=== PATIENT | female | born 1965 | race Caucasian/White ===

== ENCOUNTER 2018-01-07 12:36 | Emergency (ER) | payer BC ==
[~2018-01-07] VITALS: Ht 170.2 cm; Wt 65.3 kg
[2018-01-07 12:39] VITALS: BP 139/87
[2018-01-07] MEDS ORDERED: KETOROLAC 30 MG/1 ML ONE (16:27)
[2018-01-07] MEDS ORDERED: KETOROLAC 30 MG/1 ML IM ONE (16:30)
== END 2018-01-07 16:57 | disposition home or self-care (01) ==
LOC: ED 14:28
DX: S16.1XXA Strain of muscle, fascia and tendon at neck level, initial encounter (principal); S09.8XXA Other specified injuries of head, initial encounter; V49.49XA Driver injured in collision with other motor vehicles in traffic accident, initial encounter; Y93.89 Activity, other specified; Y92.488 Other paved roadways as the place of occurrence of the external cause; Y99.8 Other external cause status
CPT/HCPCS: 70450; 72125; 96372; 99284; J1885; 99285